=== PATIENT | male | born 2000 | race Caucasian/White ===

== ENCOUNTER 2024-07-24 19:51 | Emergency (ER) | payer OTHER, SELFPAY ==
[2024-07-24 19:57] VITALS: BP 154/85; PULSE 98; TEMP 37.3; O2SAT 97; BMI 28.0
--- NOTE | 2024-07-24 20:13 | ED.GENADUL1 ---
Documented by User: Ginger Camargo 07/24/24 20:16 HPI HPI - General Adult General Chief complaint: Head Injury Stated complaint: HEADACHE, SEEING STARS Time Seen by Provider: 07/24/24 19:56 Source: patient Mode of arrival: walk-in Limitations: no limitations History of Present Illness HPI narrative: 23-year-old male here with a chief of a headache. Patient states he fell backwards while sitting in a chair 3 days ago and struck his head on a wall. No loss of consciousness. He states he has had a headache for the past couple of days. Denies worst like of his life sudden onset or thunderclap sensation. He has no focal neurological deficits. He is not on blood thinners. He was not intoxicated when the injury occurred. He is staying at [facility] for alcohol rehabilitation. Related Data Allergies Allergy/AdvReac Type Severity Reaction Status Date / Time Penicillins Allergy throat Verified 07/24/24 20:01 swells Opioid HPI Opioid Management Most Recent Opioid Data: Last Pain Scale 5 07/24/24, 20:21 Last MAR Pain Assessment 07/24/24, 20:21 Review of Systems ROS Status of ROS 10 or more systems reviewed and unremarkable except as noted in history and below PFSH PFSH Social History Little interest or pleasure in doing things: not at all Feeling down, depressed, or hopeless: not at all Exam Narrative Exam Narrative: All Systems are negative except as noted/marked.All systems reviewed and otherwise negative Nurses note and vital signs reviewed and patient is not hypoxic. General: The patient appears well and in no apparent distress. Patient is resting comfortably on cart. Skin: Warm, dry, no pallor noted. There is no rash noted. Head: Normocephalic, atraumatic Eye: Normal conjunctiva, no drainage, EOMI. PERRL Ears, Nose, Mouth, and Throat: oral mucosa is moist. Nares patent. Mouth without vesicles. Ear canals patent. Tm's without Erythema Cardiovascular: Regular Rate and Rhythm Respiratory: Patient is in no distress, no accessory muscle use, lungs are clear to auscultation, no wheezing, rales or rhonchi Back: non-tender, no CVA tenderness bilaterally to percussion. GI: Normal bowel sounds, no tenderness to palpation, no masses appreciated. No rebound, guarding, or rigidity noted. Musculoskeletal: The patient has no evidence of calf tenderness, no pitting edema, symmetrical pulses noted bilaterally Neurological: A&O x4, normal speech Psychiatric: Cooperative Constitutional Vital Signs, click to edit/add: Last Vital Signs Temp 99.2 F 07/24/24 19:57 Pulse 98 H 07/24/24 19:57 Resp 18 07/24/24 19:57 BP 154/85 H 07/24/24 19:57 Pulse Ox 97 07/24/24 19:57 O2 Del Method Room Air 07/24/24 19:57 Course Vital Signs Vital signs: Vital Signs Temperature 99.2 F 07/24/24 19:57 Pulse Rate 98 H 07/24/24 19:57 Respiratory Rate 18 07/24/24 19:57 Blood Pressure 154/85 H 07/24/24 19:57 Pulse Oximetry 97 07/24/24 19:57 Oxygen Delivery Method Room Air 07/24/24 19:57 Temperature 99.2 F 07/24/24 19:57 Pulse Rate 98 H 07/24/24 19:57 Respiratory Rate 18 07/24/24 19:57 Blood Pressure 154/85 H 07/24/24 19:57 Pulse Oximetry 97 07/24/24 19:57 Oxygen Delivery Method Room Air 07/24/24 19:57 Medical Decision Making MDM Narrative Medical decision making narrative: 23-year-old male here with a chief of a headache. Patient states he fell backwards while sitting in a chair 3 days ago and struck his head on a wall. No loss of consciousness. He states he has had a headache for the past couple of days. Denies worst like of his life sudden onset or thunderclap sensation. He has no focal neurological deficits. He is not on blood thinners. He was not intoxicated when the injury occurred. He is staying at [facility] for alcohol rehabilitation. 23-year male who presented with chief complaint of an accidental head injury. He has no focal neurological deficits his answering all questions appropriately. Pupils are equal round reactive. He has no nystagmus. Patient is medicated here with Toradol. He will be discharged home with head injury instructions follow-up with primary care physician. He is staying at [facility] where he accidentally fell back and struck his head against the wall 3 days ago. No other injury or trauma. Patient is stable to discharge to home. Patient does not qualify or in need of a head CT at this time. Denies worst headache of his life sudden onset or thunderclap sensation Differential Diagnosis Differential Diagnosis: head injury headache Medical Records Medical records reviewed: Yes I reviewed the patient's medical records Discharge Plan Discharge Chief Complaint: Head Injury Clinical Impression: Closed head injury Patient Disposition: Home, Self-Care Time of Disposition Decision: 20:13 Condition: Good Print Language: Albanian Instructions: Head Injury (ED) Referrals: Physician,Non-Staff, MD [Primary Care Provider] - 1 week Discharge Date/Time: 07/24/24 20:45 Documented by User: Diana Peguero DO 07/25/24 18:12 HPI HPI - General Adult General Chief complaint: Head Injury Stated complaint: HEADACHE, SEEING STARS Time Seen by Provider: 07/24/24 19:56 History of Present Illness HPI narrative: 23-year-old male here with a chief of a headache. Patient states he fell backwards while sitting in a chair 3 days ago and struck his head on a wall. No loss of consciousness. He states he has had a headache for the past couple of days. Denies worst like of his life sudden onset or thunderclap sensation. He has no focal neurological deficits. He is not on blood thinners. He was not intoxicated when the injury occurred. He is staying at [facility] for alcohol rehabilitation. No neck pain or stiffness. Related Data Allergies Allergy/AdvReac Type Severity Reaction Status Date / Time Penicillins Allergy throat Verified 07/24/24 20:01 swells Opioid HPI Opioid Management Most Recent Opioid Data: Last Pain Scale 5 07/24/24, 20:21 Last MAR Pain Assessment 07/24/24, 20:21 PFSH PFSH Social History Little interest or pleasure in doing things: not at all Feeling down, depressed, or hopeless: not at all Exam Constitutional Vital Signs, click to edit/add: Last Vital Signs Temp 99.2 F 07/24/24 19:57 Pulse 98 H 07/24/24 19:57 Resp 18 07/24/24 19:57 BP 154/85 H 07/24/24 19:57 Pulse Ox 97 07/24/24 19:57 O2 Del Method Room Air 07/24/24 19:57 Course Vital Signs Vital signs: Vital Signs Temperature 99.2 F 07/24/24 19:57 Pulse Rate 98 H 07/24/24 19:57 Respiratory Rate 18 07/24/24 19:57 Blood Pressure 154/85 H 07/24/24 19:57 Pulse Oximetry 97 07/24/24 19:57 Oxygen Delivery Method Room Air 07/24/24 19:57 Temperature 99.2 F 07/24/24 19:57 Pulse Rate 98 H 07/24/24 19:57 Respiratory Rate 18 07/24/24 19:57 Blood Pressure 154/85 H 07/24/24 19:57 Pulse Oximetry 97 07/24/24 19:57 Oxygen Delivery Method Room Air 07/24/24 19:57 Discharge Plan Discharge Chief Complaint: Head Injury Clinical Impression: Closed head injury Patient Disposition: Home, Self-Care Time of Disposition Decision: 20:13 Condition: Good Print Language: Albanian Instructions: Head Injury (ED) Referrals: Physician,Non-Staff, MD [Primary Care Provider] - 1 week Discharge Date/Time: 07/24/24 20:45
[2024-07-24] MEDS: KETOROLAC TROMETHAMINE 60 MG/2 ML VIAL IM (20:21)
--- NOTE | 2024-07-24 20:41 | PC.NURSE ---
[facility] nurse contacted and ride for pt requested. 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 Pt informed and d/c'ed out to lobby to await PU.
== END 2024-07-24 20:45 | disposition home or self-care (01) ==
PROVIDERS: Emergency Provider Emergency Medicine
DX: S09.8XXA Other specified injuries of head, initial encounter (principal); W07.XXXA Fall from chair, initial encounter
CPT/HCPCS: 96372; 99284; J1885